=== PATIENT | male | born 1985 | race African-American/Black ===

== ENCOUNTER 2019-06-23 06:27 | Day surgery (SDC) | payer OTHER ==
[~2019-06-23] VITALS: Ht 188 cm; Wt 98.0 kg
[2019-06-23] MEDS ORDERED: ONDANSETRON PF 4 MG/2 ML VIAL. IV PRN (07:00)
[2019-06-23] MEDS ORDERED: PROCHLORPERAZINE 10 MG/2 ML VIAL. IV PRN (07:00)
[2019-06-23] MEDS ORDERED: HYDROmorphone 2 MG/ML VIAL IV PRN (07:00)
[2019-06-23] MEDS ORDERED: LIDOCAINE 1% PF 2 ML VIAL. ID PRN (07:00)
[2019-06-23] MEDS ORDERED: fentaNYL PF VIAL 100 MCG/2 ML VIAL IV PRN ×2 (07:00)
[2019-06-23] MEDS ORDERED: IV RINGERS,LACTATED 1000ML 1,000 ML IV SCH (07:00)
[2019-06-23] MEDS ORDERED: BUPIVACAINE-EPI 0.25%-1:200000 MPF 30 ML VIAL. INJ ONE (07:00)
[2019-06-23] MEDS ORDERED: MORPHINE SULFATE 2 MG/ML VIAL. IV PRN (07:00)
[2019-06-23] MEDS ORDERED: BACITRACIN TOPICAL OINT 14GM TUBE. TP ONE ×2 (07:09→07:14)
[2019-06-23] MEDS ORDERED: NEOMY/BACITR/POLYMYXIN OINT PACKET. TP ONE (07:14)
[2019-06-23] MEDS ORDERED: SEVOFLURANE 31 TO 60 MINUTES. IH ONE (07:21)
[2019-06-23] MEDS ORDERED: LIDOCAINE 2% PF 5 ML VIAL. ONE (07:22)
[2019-06-23] MEDS ORDERED: ONDANSETRON PF 4 MG/2 ML VIAL. ONE (07:22)
[2019-06-23] MEDS ORDERED: DEXAMETHASONE SOD PHOS 4 MG/ML VIAL ONE (07:22)
[2019-06-23] MEDS ORDERED: MIDAZOLAM HCL/PF 2 MG/2 ML VIAL. ONE (07:22)
[2019-06-23] MEDS ORDERED: PROPOFOL 20 ML IV ONE (07:22)
[2019-06-23] MEDS ORDERED: fentaNYL PF VIAL 100 MCG/2 ML VIAL ONE (07:22)
[2019-06-23] MEDS ORDERED: ceFAZolin 2GM PREMIX 2 GM/50 ML BAG IV ONE (08:00)
[2019-06-23] MEDS ORDERED: ACETAMINOPHEN 500 MG TABLET PO ONE (08:00)
--- NOTE | 2019-06-23 08:24 | PDOC4 ---
Operative Note Operative Note Date: 06/23/2019 Preoperative diagnosis: Internal hemorrhoids Postoperative diagnosis: Same Procedure: Hemorrhoidectomy Surgeon: Scott Specimens: Hemorrhoids Dictation: Patient is a 33-year-old male is had difficulties with hemorrhoids for number of years most recently has been having difficulty with some bleeding and pain with bowel movements and prolapsing of his hemorrhoids rest weight 15- 30 minutes before they will reduce. Procedure of hemorrhoidectomy was explained to the patient detail risk benefits were also discussed including bleeding infection alternatives to this procedure also discussed with the patient is seemed to understand and gave both verbal and written consent to have the procedure performed. Patient was taken to the operating room placed in supine position general anesthesia was initiated once patient was sleep and intubated is placed in the lithotomy positioning and his peritoneum was prepped and draped usual sterile fashion using Betadine scrub and solution. There were 2 hemorrhoids 1 about the 4 o'clock position and one about the 6 o'clock position area around these hemorrhoids was injected with quarter percent Marcaine with epinephrine hemorrhoid was grasped with Allis clamp and using the Harmonic scalpel was excised from the anus. Wound was then dressed with bacitracin ointment 4 x 4's and mesh underwear. Patient was placed back in the supine position awakened and extubated in the operating room taken to recovery in stable condition all sponge instrument needle counts listed as correct estimate blood loss 5 mL. GLADYS BREWER MD Jun 23, 2019 08:24
--- NOTE | 2019-06-23 08:26 | DISCH ---
DISCHARGE INSTRUCTIONS Condition on Discharge Condition on Discharge: Stable Activity After Discharge Activity Instructions for Disc: Avoid exertion Other activity instructions: no working until he seen postop 2 weeks Diet after Discharge Diet after Discharge: Regular Wound Incision Care Other wound/incision instructi: May shower in 24 hours Contacting the after DC Call your doctor for: If your condition worsens Follow-Up Follow up with: Dr. Brewer in 2 weeks, refrain from work until seen postop 2 weeks GLADYS BREWER MD Jun 23, 2019 08:26
[2019-06-23] MEDS ORDERED: oxyCODONE/APAP 5/325 1 TAB TABLET PO ONE ×3 (08:45)
[2019-06-23] MEDS ORDERED: OXYC-325 PO (08:50)
[2019-06-23 09:24] VITALS: BP 125/72
--- NOTE | 2019-06-24 18:06 | PATHOLOGY ---
[facility] Accession Number: [id number] . 01 Material submitted: . hemorrhoids - HEMORRHOIDS . 01 Clinical history: . Hemorrhoids . 02 Diagnosis: Segments of skin and anorectal mucosa and underlying fibromuscular tissue, hemorrhoidectomy: - Hemorrhoids. 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 02 Electronically signed: . Oh Fu MD, Pathologist NPI- [id number] . 01 Gross description: . The specimen is received in formalin, labeled "Jacob Simon", are two milan-purple, rubbery apparent hemorrhoids measuring 2.8 x 1.7 x 1.5 cm and 2.4 x 1.5 x 1.2 cm. Sectioning reveals a dark brown, hemorrhagic cut surface. Representatively submitted in A1. ([facility]; 06/23/2019) SHS/SHS . 02 Pathologist provided ICD-10: K64.9 . 02 CPT . 465986 Specimen Comment: A courtesy copy of this report has been sent to Specimen Comment: [phone]. Specimen Comment: Report sent to Performed at: 01 [facility] [address], [place] [id number] MD Dusty Andrews MD Phone: [phone] Performed at: 02 [facility] [address], [place] [id number] MD Oh Fu MD Phone: [phone]
== END 2019-06-23 09:48 | disposition home or self-care (01) ==
LOC: SURG 06:27
PROVIDERS: ATTEND Surgery
DX: K64.8 Other hemorrhoids (principal); K62.5 Hemorrhage of anus and rectum; Z98.890 Other specified postprocedural states; Z72.89 Other problems related to lifestyle
CPT/HCPCS: 46255; 88304; A7015; J0696; J1100; J2001; J2250; J2405; J2704; J3010; J7120; A4461